=== PATIENT | male | born 1965 | race Caucasian/White ===

== ENCOUNTER 2017-05-21 09:52 | Day surgery (SDC) | payer BC ==
[~2017-05-21] VITALS: Ht 180.3 cm; Wt 107.0 kg
--- NOTE | ~2017-05-21 | OP ---
PATIENT NAME: ESPERANZA GUPTA MEDICAL RECORD: [id number] :63 LOCATION:D.OPS ADMISSION DATE: SURGEON: ARMIDA RODRIGUEZ MD DATE OF OPERATION: 05/21/2017 PREOPERATIVE DIAGNOSES: 1. Recurrent umbilical hernia. 2. Hypercholesterolemia. 3. Diabetes mellitus. 4. Arthritis. POSTOPERATIVE DIAGNOSES: 1. Recurrent umbilical hernia. 2. Hypercholesterolemia. 3. Diabetes mellitus. 4. Arthritis. PROCEDURE: Umbilical hernia repair with 6.4 cm Proceed mesh. SURGEON: Armida Rodriguez M.D. REPORT OF PROCEDURE: The patient's abdomen was prepped and draped in sterile fashion. A skin incision was made in the midline around the umbilicus through a previous abdominal incision. Electrocautery was used to dissect through the subcutaneous tissues and down to the fascia. Once we got to the fascia. We were able to penetrate the fascia and as we extended down, we actually encountered a hernia defect. The defect was small, approximately 2-3 cm in greatest diameter as we penetrated through this. We went ahead and opened up the fascia and could see that the patient had a hernia repair with the inferior edge of the mass just not quite covering this hernia defect. This mesh was peeled back from the abdominal wall on its most inferior aspect, we freed up the fascia above and below the fascia on all sides and then inserted a 6.4-cm Proceed mesh. This mesh was sutured down on all 4 sides using multiple interrupted 0 Prolenes. Mesh rested in good position and it covered the hernia defects well with good overlap. The indwelling mesh was incorporated in to our closure. The fascia was then closed in the midline using running 0 Vicryls. The fascia came together nicely. We then infused with a total of 3 mL of 0.25% Marcaine with epinephrine into the surrounding tissues and fascia. The subcutaneous tissues were reapproximated with interrupted 3-0 Vicryls and the skin was closed with running subcutaneous 5-0 Monocryl. We then dressed the wound appropriately. COMPLICATIONS: None. CONDITION: Stable. ANESTHESIA: General endotracheal and local. BLOOD LOSS: Minimal. TRANSINT:[id number] Voice Confirmation ID: [id number] DOCUMENT ID: [id number] OPERATIVE REPORT [id number] ESPERANZA GUPTA ARMIDA RODRIGUEZ MD CC: GILDARDO MONDRAGON MD [id number] DICTATION DATE: 05/21/17 1405 [facility] CONSULTANT: 05/21/17 2327 [facility] 05/21/17 [place] [id number] [place] [id number]
[~2017-05-21 09:52] MED LIST: AMBIEN5 MG PO; BREO ELLIPTA 21 EACH; BUSPAR10 MG PO; FARXIGA10 MG PO; GLUCOPHAGE1000 MG PO; OMEPRAZOLE20 M1 PO; VITAMIN B-1000 MCG/M IM; WELLBUTRIN XL150 M1 PO; ZOCOR10 MG PO; ZOLOFT100 MG PO; insulin pump
[2017-05-21 11:15] VITALS: BP 139/90; Ht 180.3 cm; Wt 107.0 kg
[2017-05-21 11:30] LABS: BASOPHILS 0.4 % (0-2); EOSINOPHILS 2.9 % (0-7); HEMATOCRIT 47.7 % (42.0-54.0); HEMOGLOBIN 16.1 g/dL (13.5-17.5); IMMATURE GRANULOCYTES 0.1 % (0-5); LYMPHOCYTES 24.5 % (15-50); MCH 27.4 pg (26.0-34.0); MCHC 33.8 g/dL (31.0-37.0); MCV 81.1 fL (80.0-100.0); MEAN PLATELET VOLUME 11.1 fL (7.4-10.4); MONOCYTES 7.2 % (2-11); NEUTROPHILS 64.9 % (40-80); PLATELET COUNT 187 10x3/uL (130-400); RBC 5.88 10x6/uL (4.20-6.10); RDW 14.3 % (11.5-14.5); WBC 6.9 10x3/uL (4.8-10.8)
[2017-05-21] MEDS ORDERED: GABAPENTIN100 MG PO (11:47)
[2017-05-21 11:51] LABS: CALCIUM 8.6 mg/dL (8.5-10.1); CARBON DIOXIDE 26.7 mmol/L (21.0-32.0); CREATININE - SERUM 1.1 mg/dL (0.6-1.3); POTASSIUM - SERUM 3.7 mmol/L (3.5-5.1)
[2017-05-21] MEDS ORDERED: HYDROCODONE-APA1 TAB PO (14:00)
--- NOTE | 2017-05-21 14:37 | NUR ---
RECEIVED PT FROM OR WITH DRESSING TO BARRY, C/D/I.
== END 2017-05-21 16:40 | disposition home or self-care (01) ==
LOC: D.OPS 09:52 → D.PAN 12:15 → D.OPS 16:40
PROVIDERS: Anesthesiology; Surgery
DX: K42.9 Umbilical hernia without obstruction or gangrene (principal); E78.00 Pure hypercholesterolemia, unspecified; E11.9 Type 2 diabetes mellitus without complications; M19.90 Unspecified osteoarthritis, unspecified site; Z01.812 Encounter for preprocedural laboratory examination; Z68.32 Body mass index [BMI] 32.0-32.9, adult